=== PATIENT | female | born 1990 | race Caucasian/White ===

== ENCOUNTER 2018-06-20 11:26 | Emergency (ER) | payer SELFPAY ==
--- NOTE | 2018-06-20 12:17 | EDM.PDOC ---
ED HPI GENERAL MEDICAL PROBLEM - General Chief Complaint: Abdominal Pain Stated Complaint: PELVIC PAIN Time Seen by Provider: 06/20/18 12:16 Source of Information: Reports: Patient History Limitations: Reports: No Limitations - History of Present Illness INITIAL COMMENTS - FREE TEXT/NARRATIVE: HISTORY AND PHYSICAL: History of present illness: Patient is a 28-year-old female here with complaint of lower abdominal pain and dysuria x 3 days. She denies any vaginal bleeding or discharge. Patient is on Depo and states LMP was a couple of years ago. She denies any fevers, chills, vomiting, diarrhea. She denies history of STIs and has no concern for STI today. Review of systems: As per history of present illness and below otherwise all systems reviewed and negative. Past medical history: As per history of present illness and as reviewed below otherwise noncontributory. Surgical history: As per history of present illness and as reviewed below otherwise noncontributory. Social history: No reported history of drug or alcohol abuse. Family history: As per history of present illness and as reviewed below otherwise noncontributory. Physical exam: General: Patient sitting comfortably in no acute distress HEENT: Atraumatic, normocephalic, pupils reactive, negative for conjunctival pallor or scleral icterus, mucous membranes moist, throat clear, neck supple, nontender, trachea midline. Lungs: Clear to auscultation, breath sounds equal bilaterally, chest nontender. Heart: S1S2, regular, negative for clicks, rubs, or JVD. Abdomen: Suprapubic and right lower quadrant tenderness. Soft, nondistended. Negative for masses or hepatosplenomegaly. Negative for costovertebral tenderness. Pelvis: Stable nontender. Genitourinary: pain with palpation of uterus on exam. No cervical discharge noted. Rectal: Deferred. Extremities: Atraumatic, negative for cords or calf pain. Neurovascular unremarkable. Neuro: Awake, alert, oriented. Cranial nerves II through XII unremarkable. Cerebellum unremarkable. Motor and sensory unremarkable throughout. Exam nonfocal. Notes: Patient chose to leave prior to getting pelvic US. She did receive IM Rocephin and Azithromycin PO. Diagnostics: UA/UC, urine hcg GC/chlamydia, BV/cand/trich Pelvic US Therapeutics: Rocephin 250mg IM Azithromycin 1g PO Impression: Pelvic pain Plan: 1. Follow up with erp pm 2. Return to ED As needed as discussed Definitive disposition and diagnosis as appropriate pending reevaluation and review of above. pelvic Pain Score (Numeric/FACES): 8 - Related Data Allergies Allergy/AdvReac Type Severity Reaction Status Date / Time Iodinated Contrast- Oral and Allergy Difficulty Verified 06/20/18 12:36 IV Dye Breathing Home Meds: Home Meds . [No Known Home Meds] 06/20/18 [History] ED ROS GENERAL - Review of Systems Review Of Systems: ROS reveals no pertinent complaints other than HPI. ED EXAM, RENAL/ - Physical Exam Exam: See Below (See dictation) Course - Vital Signs Last Recorded V/S: Last Vital Signs Temp 36.3 C 06/20/18 11:26 Pulse 89 06/20/18 11:26 Resp 18 06/20/18 11:26 BP 128/80 06/20/18 11:26 Pulse Ox 96 06/20/18 11:26 - Orders/Labs/Meds Orders: Active Orders 24 hr Category Date Time Status Pelvis Non OB Ltd [US] Stat Exams 06/20/18 13:51 Ordered CHLAMYDIA AND GONORRHEA BY TMA Stat Lab 06/20/18 14:38 Ordered CULTURE URINE [RM] Stat Lab 06/20/18 12:32 Ordered HCG QUALITATIVE,URINE [URCHEM] Stat Lab 06/20/18 12:32 Ordered TRICH/PAUL/CAND BY DNA PROBE [MOLEC] Stat Lab 06/20/18 14:39 Ordered UA W/MICROSCOPIC [URIN] Stat Lab 06/20/18 12:32 Ordered Azithromycin [Zithromax] Med 06/20/18 14:40 Once 1,000 mg PO ONETIME ONE cefTRIAXone [Rocephin] 250 mg Med 06/20/18 14:39 Ordered Lidocaine 1% [Xylocaine-MPF 1%] 0.9 ml IM ONETIME Labs: Laboratory Tests 06/20/18 06/20/18 Range/Units 12:32 12:32 Urine Color YELLOW Urine Appearance CLEAR Urine pH 6.0 (5.0-8.0) Ur Specific [place] 1.010 (1.001-1.035) Urine Protein NEGATIVE (NEGATIVE) mg/dL Urine Glucose (UA) NEGATIVE (NEGATIVE) mg/dL Urine Ketones NEGATIVE (NEGATIVE) mg/dL Urine Occult Blood NEGATIVE (NEGATIVE) Urine Nitrite NEGATIVE (NEGATIVE) Urine Bilirubin NEGATIVE (NEGATIVE) Urine Urobilinogen 0.2 (<2.0) EU/dL Ur Leukocyte Esterase NEGATIVE (NEGATIVE) Urine RBC 0-1 (0-2/HPF) Urine WBC 0-1 (0-5/HPF) Ur Epithelial Cells OCCASIONAL (NONE-FEW) Urine Bacteria RARE (NEGATIVE) Urine HCG, Qual NEGATIVE (NEGATIVE) Meds: Medications Discontinued Medications Generic Name Dose Route Start Last Admin Trade Name Freq PRN Reason Stop Dose Admin Azithromycin 1,000 mg 06/20/18 13:42 06/20/18 14:28 Zithromax PO 06/20/18 13:43 Not Given ONETIME ONE Ceftriaxone Sodium 250 mg/ 1 mls @ 1 mls/sec 06/20/18 13:42 06/20/18 14:28 Lidocaine HCl IM 06/20/18 13:43 Not Given ONETIME ONE Departure - Departure Time of Disposition: 14:42 Disposition: Home, Self-Care 01 Condition: Good Clinical Impression: Pelvic pain - Discharge Information Referrals: PCP,None [Primary Care Provider] - Forms: ED Department Discharge Additional Instructions: The following information is given to patients seen in the emergency department who are being discharged to home. This information is to outline your options for follow-up care. We provide all patients seen in our emergency department with a follow-up referral. The need for follow-up, as well as the timing and circumstances, are variable depending upon the specifics of your emergency department visit. If you don't have a primary care physician on staff, we will provide you with a referral. We always advise you to contact your personal physician following an emergency department visit to inform them of the circumstance of the visit and for follow-up with them and/or the need for any referrals to a consulting specialist. The emergency department will also refer you to a specialist when appropriate. This referral assures that you have the opportunity for follow-up care with a specialist. All of these measure are taken in an effort to provide you with optimal care, which includes your follow-up. Under all circumstances we always encourage you to contact your private physician who remains a resource for coordinating your care. When calling for follow-up care, please make the office aware that this follow-up is from your recent emergency room visit. If for any reason you are refused follow-up, please contact the [facility] Emergency Department at and asked to speak to the emergency department charge nurse. [facility] - [facility] [address] [place] [id number] 1. Follow up with erp pm 2. Return to ED As needed as discussed - My Orders Last 24 Hours: My Active Orders 06/20/18 12:32 CULTURE URINE [RM] Stat HCG QUALITATIVE,URINE [URCHEM] Stat UA W/MICROSCOPIC [URIN] Stat 06/20/18 13:51 Pelvis Non OB Ltd [US] Stat 06/20/18 14:38 CHLAMYDIA AND GONORRHEA BY TMA Stat 06/20/18 14:39 TRICH/PAUL/CAND BY DNA PROBE [MOLEC] Stat cefTRIAXone [Rocephin] 250 mg Lidocaine 1% [Xylocaine-MPF 1%] 0.9 ml IM ONETIME 06/20/18 14:40 Azithromycin [Zithromax] 1,000 mg PO ONETIME ONE - Assessment/Plan Last 24 Hours: My Active Orders 06/20/18 12:32 CULTURE URINE [RM] Stat HCG QUALITATIVE,URINE [URCHEM] Stat UA W/MICROSCOPIC [URIN] Stat 06/20/18 13:51 Pelvis Non OB Ltd [US] Stat 06/20/18 14:38 CHLAMYDIA AND GONORRHEA BY TMA Stat 06/20/18 14:39 TRICH/PAUL/CAND BY DNA PROBE [MOLEC] Stat cefTRIAXone [Rocephin] 250 mg Lidocaine 1% [Xylocaine-MPF 1%] 0.9 ml IM ONETIME 06/20/18 14:40 Azithromycin [Zithromax] 1,000 mg PO ONETIME ONE
[2018-06-20] MEDS ORDERED: cefTRIAXone 250 MG in Lidocaine 1% 1 ML IM ONE (13:42)
[2018-06-20] MEDS ORDERED: Azithromycin 250 MG Tab PO ONE ×2 (13:42→14:40)
[2018-06-20] MEDS ORDERED: cefTRIAXone 250 MG in Lidocaine 1% 0.9 ML IM ONE (14:39)
== END 2018-06-20 15:11 | disposition home or self-care (01) ==
LOC: MW.ED 11:26
DX: R10.2 Pelvic and perineal pain (principal); R30.0 Dysuria; Z91.041 Radiographic dye allergy status
CPT/HCPCS: 81001; 81025; 87086; 87480; 87491; 87510; 87591; 87660; 96372; 99284; A9270; J0696